=== PATIENT | female | born 2000 | race African-American/Black ===

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

== ENCOUNTER 2019-02-08 16:06 | Emergency (ER) | payer OTHER ==
[2019-02-08 16:47] VITALS: BP 142/79; PULSE 102; TEMP 98.1; BMI 62.9
[2019-02-08] MEDS ORDERED: PHENAZOPYRIDINE HCL 100 MG TABLET (FP) PO ONE (17:26)
[2019-02-08] MEDS ORDERED: PHENAZOPYRIDINE HCL 100 MG TABLET (FP) ONE ×2 (17:39→18:01)
[2019-02-08 17:53] LABS: EPI CELLS 1.7 /HPF (0-5/HPF); HYALINE CASTS 9 /lpf (0-8); URINE APPEARANCE TURBID; URINE BACTERIA 84.7 /hpf (NEGATIVE); URINE BILIRUBIN NEGATIVE (NEGATIVE); URINE COLOR ORANGE; URINE GLUCOSE (UA) NEGATIVE (NEGATIVE); URINE KETONE NEGATIVE (NEGATIVE); URINE LEUK ESTERASE 3+ (NEGATIVE); URINE NITRITE NEGATIVE (NEGATIVE); URINE PROTEIN 2+ (NEGATIVE); URINE RBC 852 /hpf (0-4); URINE WBC 1987 /hpf (0-5)
[2019-02-08] MEDS ORDERED: NITROFURANTOIN MACROCRYSTAL 50 MG CAPSULE (FP) PO SCH (18:00)
--- NOTE | 2019-02-08 18:00 | PDOC ---
History of Present Illness - General Chief Complaint: Urinary Problem Stated Complaint: UTI Time Seen by Provider: 02/08/19 16:47 - History of Present Illness Initial Comments: CHIEF COMPLAINT: urinary symptoms HISTORY OF PRESENT ILLNESS: 18 yo F with no PMH presents to ED with urinary frequency/urgency/burning x 1 week, worsening today. Patient denies being sexually active, denies any unusual discharge . Patient states she does have blood in her urine as she is currently menstruating. Patient denies fever, back pain, vomiting, diarrhea. No recent travel or sick contacts. PAST MEDICAL HISTORY: Denies past medical history FAMILY HISTORY: Denies SOCIAL HISTORY: Denies tobacco, alcohol, illicit drug use. SURGICAL HISTORY: Denies ALLERGIES: No known drug allergies REVIEW OF SYSTEMS General/Constitutional: Denies fever or chills. Denies weakness, weight change. HEENT: Denies change in vision. Denies ear pain or discharge. Denies sore throat. Cardiovascular: Denies chest pain or shortness of breath. Respiratory: Denies cough, wheezing, or hemoptysis. Gastrointestinal: Denies nausea, vomiting, diarrhea or constipation. Denies rectal bleeding. Genitourinary: Dysuria, urinary urgency and frequency. Musculoskeletal: Denies joint or muscle swelling or pain. Denies neck or back pain. Skin and breasts: Denies rash or easy bruising. Neurologic: Denies headache, vertigo, loss of consciousness, or loss of sensation. Psychiatric: Denies depression or anxiety. PHYSICAL EXAM General Appearance: Well-appearing, appropriately dressed. No apparent distress , no intoxication. HEENT: EOMI, PERRLA, normal ENT inspection, normal voice, TMs normal, pharynx normal. No conjunctival pallor. No photophobia, scleral icterus. Neck: Supple. Trachea midline. No tenderness, rigidity, carotid bruit, stridor , lymphadenopathy, or thyromegaly. Respiratory/Chest: Lungs CTAB. No shortness of breath, chest tenderness, respiratory distress, accessory muscle use. No crackles, rales, rhonchi, stridor , wheezing, dullness Cardiovascular: RRR. S1, S2. No JVD, murmur, bradycardia, tachycardia. Vascular Pulses: Dorsalis-Pedis (R): 2+, Dorsalis-Pedis (L): 2+ Gastrointestinal/Abdominal: Normal bowel sounds. Abdomen soft, non-distended. No tenderness or rebound tenderness. No organomegaly, pulsatile mass, guarding , hernia, hepatomegaly, splenomegaly. Lymphatic: No adenopathy, tenderness. Musculoskeletal/Extremities: Normal inspection. FROM of all extremities, normal capillary refill. Pelvis Stable. No CVA tenderness. No tenderness to extremities, pedal edema, swelling, erythema or deformity. Integumentary: Appropriate color, dry, warm. No cyanosis, erythema, jaundice or rash Neurologic: client services associate II-XII intact. Fully oriented, alert. Appropriate mood/affect. Motor strength 5/5. No appreciable EOM palsy, facial droop or sensory deficit. Past History - Past Medical History Allergies/Adverse Reactions: Allergies Allergy/AdvReac Type Severity Reaction Status Date / Time basil AdvReac Intermediate Hives Verified 12/24/17 08:11 Home Medications: Ambulatory Orders Ibuprofen [Motrin -] 400 mg PO QID PRN #28 tablet 12/24/17 Naproxen [Naprosyn -] 500 mg PO BID #30 tablet 12/24/17 Oxycodone HCl/Acetaminophen [Percocet 5-325 mg Tablet -] 1 - 2 tab PO Q4H PRN # 7 tablet MDD 4 12/24/17 Nitrofurantoin Monohyd/M-Cryst [Macrobid -] 100 mg PO BID #14 capsule 02/08/19 COPD: No Psychiatric Problems: Yes (depression) - Immunization History Td Vaccination: No TDAP Vaccination: No Immunization Up to Date: Yes - Psycho Social/Smoking Cessation Hx Smoking History: Never smoked Have you smoked in the past 12 months: No Hx Alcohol Use: No Drug/Substance Use Hx: No Substance Use Type: None *Physical Exam - Vital Signs Last Vital Signs Temp Pulse Resp BP Pulse Ox 98.1 F 102 H 17 142/79 97 02/08/19 16:45 02/08/19 16:45 02/08/19 16:45 02/08/19 16:45 02/08/19 16:45 ED Treatment Course - ADDITIONAL ORDERS Additional order review: Laboratory Results 02/08/19 02/08/19 17:11 17:11 Urine Color [place] Urine Appearance Turbid Urine pH 7.0 Ur Specific [place] 1.024 Urine Protein 2+ H Urine Glucose (UA) Negative Urine Ketones Negative Urine Blood 3+ H Urine Nitrite Negative Urine Bilirubin Negative Urine Urobilinogen 1.0 Ur Leukocyte Esterase 3+ H Urine WBC (Auto) 1986 Urine RBC (Auto) 852 Urine Casts (Auto) 9 U Epithel Cells (Auto) 1.7 Urine Bacteria (Auto) 84.7 Urine HCG, Qual Negative Medical Decision Making - Medical Decision Making 02/08/19 18:56 18 yo F with no PMH presents to ED with urinary frequency/urgency/burning x 1 week, worsening today. -UA, UCx -Pyridium UA positive for UTI. Macrobid rx sent to pharm Advised patient to take medication as prescribed and follow up with PCP in one week. Advised patient of signs and symptoms for return to ED. Patient verbalized understanding and agrees to plan. Discharge - Discharge Information Problems reviewed: Yes Clinical Impression/Diagnosis: UTI (urinary tract infection) Qualifiers: Urinary tract infection type: site unspecified Hematuria presence: with hematuria Qualified Code(s): N39.0 - Urinary tract infection, site not specified Condition: Stable Disposition: HOME - Admission No - Additional Discharge Information Prescriptions: Nitrofurantoin Monohyd/M-Cryst [Macrobid -] 100 mg PO BID #14 capsule - Follow up/Referral Referrals: Emily Hall [Primary Care Provider] - - Patient Discharge Instructions Patient Printed Discharge Instructions: DI for Urinary Tract Infection (UTI) - Post Discharge Activity
[2019-02-08] MEDS ORDERED: NITROFURANTOIN MACROCRYSTAL 50 MG CAPSULE (FP) ONE (18:05)
== END 2019-02-08 18:54 | disposition home or self-care (01) ==
LOC: JERFT 16:06
DX: N39.0 Urinary tract infection, site not specified (principal); Z91.018 Allergy to other foods; F32.9 Major depressive disorder, single episode, unspecified
CPT/HCPCS: 81003; 84703; 87086; 87186; 99281-25

== ENCOUNTER 2020-02-10 19:08 | Emergency (ER) | payer OTHER ==
[2020-02-10 19:18] VITALS: BMI 62.6
[2020-02-10] MEDS ORDERED: IBUPROFEN 600 MG TABLET (FP) PO ONE ×3 (22:47→22:55)
[2020-02-10] MEDS ORDERED: IBUPROFEN 400 MG TABLET (FP) PO ONE (22:47)
[2020-02-10 23:08] VITALS: BP 126/87; PULSE 79; TEMP 98.6
== END 2020-02-10 23:14 | disposition home or self-care (01) ==
LOC: JER 19:08
DX: S82.892A Other fracture of left lower leg, initial encounter for closed fracture (principal)
CPT/HCPCS: 73590-TC-LT-FY; 73610-TC-LT-FY; 73630-TC-LT; 99284-25

== ENCOUNTER 2021-09-20 03:18 | Emergency (ER) | payer OTHER ==
[2021-09-20 03:44] VITALS: BP 148/72; PULSE 97; RESP 19; TEMP 99; BMI 62.6
[2021-09-20] MEDS ORDERED: diphenhydrAMINE HCL 25 MG CAPSULE (FP) PO ONE ×2 (04:15→04:46)
== END 2021-09-20 05:02 | disposition home or self-care (01) ==
LOC: JER 03:18
DX: L29.9 Pruritus, unspecified (principal)
CPT/HCPCS: 82962; 99283-25

== ENCOUNTER 2021-09-23 08:31 | Emergency (ER) | payer OTHER ==
[2021-09-23 08:37] VITALS: BP 159/90; PULSE 104; RESP 20; TEMP 98.7; BMI 62.6
== END 2021-09-23 09:16 | disposition home or self-care (01) ==
LOC: JERFT 08:31
DX: L30.4 Erythema intertrigo (principal); B37.2 Candidiasis of skin and nail
CPT/HCPCS: 99283-25

== ENCOUNTER 2022-08-04 15:43 | Emergency (ER) | payer OTHER ==
[2022-08-04 16:02] VITALS: BP 143/78; PULSE 93; RESP 17; TEMP 98.2; BMI 60.8
== END 2022-08-04 17:19 | disposition home or self-care (01) ==
LOC: JERFT 15:43
DX: R21 Rash and other nonspecific skin eruption (principal); L30.4 Erythema intertrigo
CPT/HCPCS: 99282-25